=== PATIENT | female | born 1990 | race Caucasian/White ===

== ENCOUNTER → 2016-11-16 | Outpatient (CLI) | payer OTHER ==
--- NOTE | 2016-11-17 07:38 | RADIOLOGY REPORT PS360 ---
US PREG COMP INDICATION: 20 WEEK ANATOMICAL SURVEY TECHNIQUE: ultrasound transabdominal scanning/ MW COMPARISON: No previous relevant studies FINDINGS Single viable intrauterine gestation. Variable position. Was breech at the end of today's study. Posterior placenta which extends to the fundus. The cervix appears satisfactory. Long, closed and over 4 .2 cm length Complete survey performed and was unremarkable on the submitted images as in PACS.No discrete anomalies identified on survey imaging by technologist Active fetus. Three-vessel cord with satisfactory umbilical cord insertion. . Survey of brain & ventricles unremarkable. Posterior fossa survey included and unremarkable Face and neck survey unremarkable. Nasion. lips. Orbits overall satisfactory on today's survey Diaphragm & views chest unremarkable. Four-chamber heart are visualized satisfactory. Additional cine loop of the four-chamber heart included. LVOT of imaged abdomen: Both kidneys noted & unremarkable. Stomach noted & satisfactory. Bladder identified spine: Survey of the spine satisfactory with no anomalies identified nor imaged Both arms and legs noted. Most likely female fetus Amniotic fluid.-. Normal to upper normal amount. Maternal adnexa -no gross incidental findings encountered. measurements:. Average ultrasound age 21 weeks 0 days. Gestational age 20 weeks 5 days. BPD = 21 week 1 day OFD = 21 week 2 day HC = 20 week 4 day AC = 20 week 6 day FL = 21 week 0 day Heart rate = 144 BPM. Cerebellum = 21 week 2 day humerus = 21 week 4 day IMPRESSION: Single viable intrauterine gestation in variable position. Breech presentation at end of today's exam 21 week 0 dayaverage ultrasound age with today's measurements Posterior placenta extends to the fundus. Active fetus. Normal/Unremarkable anatomical survey Amniotic fluid -Normal/upper normal amount
== END ==
LOC: RAD 14:21
DX: Z36 Encounter for antenatal screening of mother (principal)